=== PATIENT | female | born 1955 | race Caucasian/White ===

== ENCOUNTER 2016-12-16 08:01 | Emergency (ER) | payer BC ==
[2016-05-01 11:01] VITALS: BMI 29.9
[~2016-12-16 08:01] MED LIST: AMOXICILLIN875 MG PO; BENTYL10 MG PO; CALTRATE 600 M600 M1 PO; CITRACAL + D E1 EACH PO; CLARITIN 10 MG10 MG PO; CROLOM 4 % OPTH10 ML EACH EYE; CYCLOBENZAPRINE10 MG PO; DOXYCYCLINE HY100 M2 PO; GLUCOPHAGE500 MG PO; GLUCOSAMINE & C1 CAP PO; HYDROCODONE-APA1 TAB PO; KLONOPIN0.5 MG PO; LANTUS INSULIN10 ML SC; LANTUS SOL100 UNIT/1 SC; LANTUS SOL100 UNIT/1 SQ; METAMUCIL PO; MUCINEX600 MG PO; MULTIPLE VITAMI1 TA1 PO; NAPROSYN500 MG PO; NORVASC10 MG PO; PHENERGAN DM SYR5 ML PO; POTASSIUM99 M1 PO; PROBIOTIC1 EAC1 PO; PROVENTIL/2.5 MG/3 M INH; SALINE NASAL SP45 ML NS; SINGULAIR10 MG PO; SLOW-MAG 64 MG64 MG PO; TORADOL10 MG PO; VENTOLIN HFA18 GM INH; VITAMIN B COMPL1 TAB PO; VITAMIN C WITH500 M1 PO; ZINC30 MG PO; ZYRTEC10 MG PO
[2016-12-16 09:21] LABS: BASOPHILS 0.2 % (0.0-2.0); HEMATOCRIT 39.5 % (36.0-48.0); HEMOGLOBIN 13.6 g/dL (12-16); IMMATURE GRANULOCYTES 0.3 % (0-5); LYMPHOCYTES 15.6 % (15-50); MCH 28.3 pg (26.0-34.0); MCHC 34.4 g/dL (31.0-37.0); MCV 82.3 fL (80.0-100.0); MEAN PLATELET VOLUME 10.4 fL (7.4-10.4); MONOCYTES 5.6 % (2-11); NEUTROPHILS 77.3 % (40-80); PLATELET COUNT 267 10x3/uL (130-400); RDW 12.8 % (11.5-14.5)
[2016-12-16 09:40] LABS: APPEARANCE HAZY (CLEAR); BACTERIA MODERATE /hpf (NONE SEEN); BILIRUBIN NEGATIVE (NEGATIVE); CALCIUM OXALATE CRYSTALS >50 /hpf (NONE SEEN); COLOR DK YELLOW (YELLOW); EPITHELIAL CELLS 0-5 /hpf (0-5); GLUCOSE NEGATIVE (NEGATIVE); KETONE NEGATIVE (NEGATIVE); LEUKOCYTE ESTERASE TRACE (NEGATIVE); MUCUS <1+ /lpf (NONE SEEN); NITRITE NEGATIVE (NEGATIVE); PROTEIN TRACE mg/dL (NEGATIVE); RED CELLS - URINE 0-5 /hpf (0-5)
[2016-12-16 09:42] LABS: ANION GAP 13.7 mmol/L (8-16); CALCIUM 10.4 mg/dL (8.5-10.1); CARBON DIOXIDE 28.1 mmol/L (21.0-32.0); CREATININE - SERUM 1.2 mg/dL (0.6-1.3); POTASSIUM - SERUM 3.8 mmol/L (3.5-5.1)
== END 2016-12-16 15:00 | disposition home or self-care (01) ==
LOC: D.ER 08:01
PROVIDERS: Emergency Medicine
DX: S30.1XXA Contusion of abdominal wall, initial encounter (principal); V89.2XXA Person injured in unspecified motor-vehicle accident, traffic, initial encounter; Y93.89 Activity, other specified; Y92.410 Unspecified street and highway as the place of occurrence of the external cause; I10 Essential (primary) hypertension; E11.9 Type 2 diabetes mellitus without complications; Z79.4 Long term (current) use of insulin

== ENCOUNTER 2017-01-18 05:16 | Day surgery (SDC) | payer BC ==
[2017-01-17 13:54] LABS: HEMATOCRIT 39.1 % (36.0-48.0); HEMOGLOBIN 13.5 g/dL (12-16); MCH 28.4 pg (26.0-34.0); MCHC 34.5 g/dL (31.0-37.0); MCV 82.3 fL (80.0-100.0); MEAN PLATELET VOLUME 11.2 fL (7.4-10.4); RBC 4.75 10x6/uL (4.00-5.40); WBC 9.1 10x3/uL (4.8-10.8)
[2017-01-17 14:17] LABS: ANION GAP 14.4 mmol/L (8-16); CALCIUM 9.5 mg/dL (8.5-10.1); CARBON DIOXIDE 27.6 mmol/L (21.0-32.0); CREATININE - SERUM 1.2 mg/dL (0.6-1.3)
[~2017-01-18] VITALS: Ht 154.9 cm; Wt 70.3 kg
[2017-01-18 05:25] VITALS: BP 123/83; Ht 154.9 cm; Wt 70.3 kg
[2017-01-18] MEDS ORDERED: NORCO 7.5/325 T1 TA1 PO (07:28)
--- NOTE | 2017-01-18 07:41 | NUR ---
0735-RECEIVED PT FROM OR SLEEPY. WILL RESPOND TO SPEECH. RIGHT HAND BANDAGE CDI, DENIES ANY PAIN AT THIS TIME. IV IN LEFT HAND THAT IS INFUSING VANC WITHOUT ANY DIFFICULTIES WATER AT BEDSIDE WILL CONTINUE TO MONITOR
--- NOTE | 2017-01-18 11:25 | NUR ---
0830 IV DC LEO CATHER TIP INTACT WAITING ON RIDE
--- NOTE | 2017-01-29 12:19 | OP ---
PATIENT NAME: JUNAID BURNS MEDICAL RECORD: [id number] :59 LOCATION:D.[facility] ADMISSION DATE: SURGEON: SYL HARTLEY MD DATE OF OPERATION: 01/18/2017 PREOPERATIVE DIAGNOSIS: Right index finger trigger finger. POSTOPERATIVE DIAGNOSIS: Right index finger trigger finger. PROCEDURE PERFORMED: Right index finger trigger release. SURGEON: Harjeet Hartley MD. ANESTHESIA: TIVA with local. CONDITION: She tolerated the procedure well, was transferred to the recovery room in stable condition at termination of procedure. INDICATIONS: This is a pleasant 61-year-old female who has felt like she has a cyst or a bump on her index finger, around the miguel angel. This has been palpable. We discussed options with this, elected to go ahead and look for a cyst versus trigger. We discussed risks, benefits and alternatives. She understood and wished to proceed. OPERATIVE REPORT: The patient was taken to the operating room and placed in supine position. TIVA anesthesia was obtained. She did have local infiltration of the finger. I then made a Z-plasty type incision over the A1 miguel angel. She did have a little collection of Kenalog that was likely what was palpable. I did go ahead and release her A1 miguel angel. The tendon was gliding well. I did not feel any other cyst in the area. I therefore copiously irrigated, closed with 3-0 Prolene suture, placed in a soft dressing and a splint. She was awakened and transferred to the recovery room in stable condition, having tolerated the procedure well. TRANSINT:[id number] Voice Confirmation ID: [id number] DOCUMENT ID: [id number] SYL HARTLEY MD at 1219 CC: [id number] DICTATION DATE: 01/18/17 0800 LIQUOR ESTABLISHMENT MANAGER: 01/18/17 1706 [facility] 01/18/17 [place] [id number]
== END 2017-01-18 10:00 | disposition home or self-care (01) ==
LOC: D.OPS 05:16 → D.PAN 07:00 → D.OPS 07:00 → D.PAN 01-22 07:00 → D.OPS 01-22 07:00
PROVIDERS: Anesthesiology
DX: M65.321 Trigger finger, right index finger (principal)

== ENCOUNTER 2017-05-14 09:10 | Outpatient (CLI) | payer BC ==
[2017-01-18 05:25] VITALS: BMI 29.3
[~2017-05-14 09:10] MED LIST changes: +NORCO 7.5/325 T1 TA1 PO
== END 2017-05-14 09:22 ==
LOC: D.MAMMO 09:10
DX: Z12.31 Encounter for screening mammogram for malignant neoplasm of breast (principal)

== ENCOUNTER 2017-05-23 16:50 | Outpatient (CLI) | payer BC ==
[2017-01-18 05:25] VITALS: BMI 29.3
== END 2017-05-23 17:32 ==
LOC: D.MAMMO 16:50
DX: R92.8 Other abnormal and inconclusive findings on diagnostic imaging of breast (principal)

== ENCOUNTER 2017-08-15 08:00 | Outpatient (CLI) | payer BC ==
[2017-01-18 05:25] VITALS: BMI 29.3
== END 2017-08-15 23:59 | disposition home or self-care (01) ==
LOC: D.MRI 08:00
DX: M79.644 Pain in right finger(s) (principal)

== ENCOUNTER → 2018-02-05 13:32 | Outpatient (CLI) | payer BC ==
[2017-01-18 05:25] VITALS: BMI 29.3
[~2018-02-05 13:32] MED LIST changes: +FENOFIBRATE134 MG PO; +OMEPRAZOLE20 M1 PO; +RELAFEN500 MG PO; +SALAGEN5 MG PO; +SOLIQUA; +ZOCOR20 MG PO
== END | disposition home or self-care (01) ==
LOC: D.CT 13:30
DX: R10.9 Unspecified abdominal pain (principal)

== ENCOUNTER 2018-02-13 05:55 | Day surgery (SDC) | payer BC ==
[2018-02-12 18:11] LABS: HEMATOCRIT 39.5 % (36.0-48.0); MCHC 35.4 g/dL (31.0-37.0); MCV 81.8 fL (80.0-100.0); MEAN PLATELET VOLUME 10.7 fL (7.4-10.4); RBC 4.83 10x6/uL (4.00-5.40); RDW 13.3 % (11.5-14.5); WBC 15.7 10x3/uL (4.8-10.8)
[2018-02-12 18:31] LABS: ANION GAP 15.9 mmol/L (8-16); CALCIUM 9.5 mg/dL (8.5-10.1); CARBON DIOXIDE 28.7 mmol/L (21.0-32.0); CREATININE - SERUM 0.9 mg/dL (0.6-1.3); POTASSIUM - SERUM 3.6 mmol/L (3.5-5.1)
[~2018-02-13] VITALS: Ht 157.5 cm; Wt 68.0 kg
--- NOTE | ~2018-02-13 | OP ---
PATIENT NAME: JUNAID BURNS MEDICAL RECORD: [id number] :59 LOCATION:[facility] ADMISSION DATE: SURGEON: LUCY MAHAJAN, JOEL JOVEL DATE OF OPERATION: 02/13/2018 PREOPERATIVE DIAGNOSES: 1. Recurrent trigger finger with flexor tenosynovitis of the right hand, index finger. 2. Dupuytren's contracture, right hand index finger. 3. Subcutaneous cyst right hand index finger. POSTOPERATIVE DIAGNOSES: 1. Recurrent trigger finger with flexor tenosynovitis of the right hand, index finger. 2. Dupuytren's contracture, right hand index finger. 3. Subcutaneous cyst right hand index finger. PROCEDURE: 1. Debridement of the extensor tendon sheath. 2. A1 miguel angel release. 3. Excision of Dupuytren's contracture. 4. Excision of subcutaneous cyst on the palmar aspect of the right hand. SURGEON: Joel Ayala MD ANESTHESIA: General. INTRAOPERATIVE COMPLICATIONS: The patient had what appeared to be a previous operation with substantial scarring of the A1 miguel angel. After the A1 miguel angel was released only the single slip of the flexor digitorum profundus was found AND a single slip of flexor digitorum superficialis was found. No evidence of the second slip; however, manual manipulation of the flexor digitorum profundus showed good DIP flexion. Manual manipulation of the flexure digitorum superficialis showed good PIP flexion. It is of note that the flexor digitorum profundus was somewhat lax, but obviously still connected without rupture. Substantial synovitis was seen throughout and the tendons had adhered at one point to one another. The A1 miguel angel itself was extremely tight and was released in its entirety. The synovitis of the tendon sheath itself was also debrided. Also a subcutaneous nodule that looked more like a keratosis was removed in its entirety and a single band of early Dupuytren's contracture to the finger was also excised and sent for pathology. OPERATIVE SUMMARY IN DETAIL: After obtaining the appropriate preoperative orthopedic surgery consent as well as anesthetic consultation, evaluation and clearance, the patient was brought to the operating room and placed on the table in supine position. After adequate general laryngeal mask airway was administered, tourniquet was placed about the proximal aspect of the right upper extremity. Right upper extremity was then prepped and draped in routine sterile fashion. The arm was elevated, exsanguinated and tourniquet was inflated to 350 mmHg. Volar zigzag incision was made from the MCP joint back into the palmar aspect incorporating the cyst. As the incision was made, the cyst was excised subcutaneously and further dissection then showed the small, but very present Dupuytren's band. The cyst was excised, the Dupuytren's band was excised, and the entire tendon sheath was exposed. There was a mild amount of thenar eminence herniation. The entire tendon sheath was exposed and inspection was OPERATIVE REPORT [id number] JUNAID BURNS carried out and the findings as noted above were seen. The A1 miguel angel was released in its entirety and the adhesions between the single FDS and the single FDP tendons were taken down for independent excursion. Having completed this, the wound was copiously irrigated and closed with 4-0 Prolene. Sterile dressings were applied. The patient was awakened and taken to recovery in stable condition. Please note, prior to final closure, the area was locally infiltrated with 0.25% Marcaine plain. Again, sterile dressings were applied. Tourniquet was deflated. The patient was awakened and taken to the recovery room in stable condition. All final needle and sponge counts were correct. TRANSINT:[id number] Voice Confirmation ID: [id number] DOCUMENT ID: [id number] LUCY MAHAJAN, JOEL JOVEL at 1601 CC: [id number] DICTATION DATE: 02/13/18 0850 PHARMACY DATA ANALYST: 02/13/18 1110 [facility] 02/13/18 [facility] [address] [place] [address]
[~2018-02-13 05:55] MED LIST changes: -FENOFIBRATE134 MG PO; -OMEPRAZOLE20 M1 PO; -RELAFEN500 MG PO; -SALAGEN5 MG PO; -SOLIQUA; -ZOCOR20 MG PO
[2018-02-13] MEDS ORDERED: SOLIQUA (06:40)
[2018-02-13] MEDS ORDERED: ZOCOR20 MG PO (06:40)
[2018-02-13] MEDS ORDERED: FENOFIBRATE134 MG PO (06:41)
[2018-02-13] MEDS ORDERED: OMEPRAZOLE20 M1 PO (06:41)
[2018-02-13] MEDS ORDERED: RELAFEN500 MG PO (06:41)
[2018-02-13] MEDS ORDERED: SALAGEN5 MG PO (06:42)
[2018-02-13 06:44] VITALS: BP 132/77; Ht 157.5 cm; Wt 68.0 kg
[2018-02-13] MEDS ORDERED: HYDROCODONE-APA1 TAB PO (08:45)
== END 2018-02-13 11:30 | disposition home or self-care (01) ==
LOC: D.OPS 05:55 → D.PAN 07:30 → D.OPS 07:30
PROVIDERS: Orthopaedic Surgery
DX: M65.321 Trigger finger, right index finger (principal); M65.841 Other synovitis and tenosynovitis, right hand; M72.0 Palmar fascial fibromatosis [Dupuytren]; L72.3 Sebaceous cyst; Z01.812 Encounter for preprocedural laboratory examination

== ENCOUNTER 2018-03-06 10:02 | Day surgery (SDC) | payer BC ==
[~2018-03-06] VITALS: Ht 157.5 cm; Wt 68.2 kg
--- NOTE | ~2018-03-06 | OP ---
PATIENT NAME: JUNAID SALAZAR MEDICAL RECORD: [id number] :59 LOCATION:D[facility] ADMISSION DATE: SURGEON: ALBERTINA JUNIOR MD DATE OF OPERATION: 03/06/2018 PROCEDURE: Colonoscopy with biopsy and polypectomy. REFERRING PHYSICIAN: Med Olguin MD INDICATIONS: Ms. Salazar is a delightful 62-year-old woman with a history of colon polyps and diverticulosis coli. She has history of chronic left-sided abdominal pain. She had a CT of the abdomen and pelvis with contrast on 02/05/2018 with finding showing slightly increased number and prominence of subcentimeter mesenteric nodes in the left abdomen (possible mesenteric adenitis), stable hepatomegaly and hepatic steatosis. She was treated with prednisone, but her abdominal pain has persisted. Her last colonoscopy was 01/12/2015 that showed a few diverticula in the transverse, descending, and sigmoid colon and a small tubular adenomatous sigmoid polyp. She presents for outpatient colonoscopy secondary to history of colon polyps and secondary as well as to abdominal pain. PREMEDICATIONS: Propofol 400 mg. INSTRUMENT: Olympus video colonoscope. PROCEDURE AND FINDINGS: After receiving informed consent, Ms. Salazar was placed in left lateral decubitus position, sedated as per anesthesia. After achieving adequate level of sedation, digital rectal exam from it showed no external hemorrhoidal tags, fissures, or fistulas, normal sphincter tone, no palpable rectal masses. Colonoscope was introduced per rectally and advanced to the cecum without difficulty. The cecum, IC valve, and appendiceal orifice were identified and appeared normal. As the colonoscope was withdrawn, careful inspection was made of the pineda of the colon. Overall mucosa had normal vascular and fold pattern. In the transverse colon were 3 polyps measuring 0.3-0.5 cm in size, sessile, removed with hot biopsy forcep technique. In the sigmoid colon were 2 small polyps measuring 0.3 cm in size, removed with hot biopsy forcep technique. There was one small patch of erythema in the sigmoid colon and sigmoid biopsies were obtained to rule out microscopic colitis. A few diverticula were seen in the sigmoid, descending, and transverse colon. They were small mouthed with no inflammatory changes. Retroflexion in rectum showed no internal hemorrhoids. A good prep was present. Ms. Salazar tolerated procedure well, no immediate complications. ASSESSMENT: 1. Mild pandiverticulosis coli without diverticulitis. 2. Three transverse colon polyps, status post polypectomy. 3. Two sigmoid polyps, status post polypectomy. 4. Left abdominal pain, status post sigmoid biopsy. RECOMMENDATIONS: 1. Follow up histopathology. 2. Avoid aspirin, nonsteroidal anti-inflammatory drugs, and BRADFORD-2 inhibitors for 14 days post polypectomy. 3. Daily Metamucil. 4. Avoid nuts, popcorn, and foods with small seeds. OPERATIVE REPORT [id number] JUNAID SALAZAR 5. Plan repeat CT of the abdomen and pelvis in May 2018. TRANSINT:[id number] Voice Confirmation ID: [id number] DOCUMENT ID: [id number] ALBERTINA JUNIOR MD at 1123 CC: MED OLGUIN [id number] DICTATION DATE: 03/06/18 1311 DONKEY ENGINE FIRER/FIREMAN: 03/06/18 1344 [facility] 03/06/[address] [address]
[~2018-03-06 10:02] MED LIST changes: +FENOFIBRATE134 MG PO; +OMEPRAZOLE20 M1 PO; +RELAFEN500 MG PO; +SALAGEN5 MG PO; +SOLIQUA; +ZOCOR20 MG PO
[2018-03-06 10:44] VITALS: BP 109/80; Ht 157.5 cm; Wt 68.2 kg
[2018-03-06 10:49] LABS: BASOPHILS 0.3 % (0-2); EOSINOPHILS 2.2 % (0-7); HEMATOCRIT 39.9 % (36.0-48.0); HEMOGLOBIN 14.3 g/dL (12-16); IMMATURE GRANULOCYTES 0.2 % (0-5); LYMPHOCYTES 34.2 % (15-50); MCH 29.5 pg (26.0-34.0); MCHC 35.8 g/dL (31.0-37.0); MCV 82.3 fL (80.0-100.0); MONOCYTES 8.6 % (2-11); NEUTROPHILS 54.5 % (40-80); PLATELET COUNT 270 10x3/uL (130-400); RBC 4.85 10x6/uL (4.00-5.40); RDW 13.1 % (11.5-14.5); WBC 5.9 10x3/uL (4.8-10.8)
[2018-03-06 11:05] LABS: ALBUMIN 3.8 g/dL (3.4-5.0); ANION GAP 14.7 mmol/L (8-16); BILIRUBIN - TOTAL 0.4 mg/dL (0.2-1.3); CALCIUM 8.6 mg/dL (8.5-10.1); CARBON DIOXIDE 27.7 mmol/L (21.0-32.0); CREATININE - SERUM 0.9 mg/dL (0.6-1.3); POTASSIUM - SERUM 3.4 mmol/L (3.5-5.1); PROTEIN - SERUM 7.6 g/dL (6.4-8.2)
== END 2018-03-06 15:00 | disposition home or self-care (01) ==
LOC: D.OPS 10:02
PROVIDERS: Internal Medicine Gastroenterology
DX: K57.30 Diverticulosis of large intestine without perforation or abscess without bleeding (principal); D12.5 Benign neoplasm of sigmoid colon; D12.3 Benign neoplasm of transverse colon; K63.5 Polyp of colon; Z01.812 Encounter for preprocedural laboratory examination

== ENCOUNTER → 2018-05-01 08:02 | Outpatient (CLI) | payer BC ==
[2018-03-06 10:44] VITALS: BMI 27.5
== END | disposition home or self-care (01) ==
LOC: D.MRI 08:02
DX: M79.641 Pain in right hand (principal)

== ENCOUNTER → 2018-06-02 16:29 | Outpatient (CLI) | payer BC ==
[2018-03-06 10:44] VITALS: BMI 27.5
[2018-06-04 08:17] LABS: HEP B CORE AB TOTAL Negative (Negative); HEPATITIS C ANTIBODY <0.1 (0.0-0.9)
== END | disposition home or self-care (01) ==
LOC: D.LAB 16:29
PROVIDERS: Internal Medicine Rheumatology
DX: M35.00 Sjogren syndrome, unspecified (principal)

== ENCOUNTER → 2018-07-08 19:49 | Outpatient (CLI) | payer BC ==
[2018-03-06 10:44] VITALS: BMI 27.5
== END | disposition home or self-care (01) ==
LOC: D.MAMMO 06-26 11:30
DX: Z12.31 Encounter for screening mammogram for malignant neoplasm of breast (principal)

== ENCOUNTER → 2018-07-25 12:51 | Outpatient (CLI) | payer OTHER ==
[2018-03-06 10:44] VITALS: BMI 27.5
== END | disposition home or self-care (01) ==
LOC: D.RAD 12:51 → D.MAMMO 13:00
DX: Z02.71 Encounter for disability determination (principal)

== ENCOUNTER → 2018-07-25 13:04 | Outpatient (CLI) | payer BC ==
[2018-03-06 10:44] VITALS: BMI 27.5
[2018-07-25 14:37] LABS: ALBUMIN 4.2 g/dL (3.4-5.0); CREATININE - SERUM 0.9 mg/dL (0.6-1.3)
[2018-07-25 16:25] LABS: BASOPHILS 0.4 % (0-2); EOSINOPHILS 3.7 % (0-7); HEMOGLOBIN 14.4 g/dL (12-16); IMMATURE GRANULOCYTES 0.4 % (0-5); LYMPHOCYTES 25.1 % (15-50); MCH 28.7 pg (26.0-34.0); MCHC 35.1 g/dL (31.0-37.0); MCV 81.7 fL (80.0-100.0); MEAN PLATELET VOLUME 10.7 fL (7.4-10.4); MONOCYTES 4.8 % (2-11); NEUTROPHILS 65.6 % (40-80); PLATELET COUNT 311 10x3/uL (130-400); RBC 5.02 10x6/uL (4.00-5.40); RDW 13.9 % (11.5-14.5); WBC 7.5 10x3/uL (4.8-10.8)
[2018-07-25 16:33] LABS: ERYTHROCYTE SEDIMENTATION RATE 20 mm/hr (0-30)
== END | disposition home or self-care (01) ==
LOC: D.LAB 13:04
PROVIDERS: Internal Medicine Rheumatology
DX: M35.00 Sjogren syndrome, unspecified (principal)

== ENCOUNTER → 2018-09-19 10:13 | Outpatient (CLI) | payer BC ==
[2018-03-06 10:44] VITALS: BMI 27.5
[~2018-09-19 10:13] MED LIST changes: +AMIODARONE HCL200 MG PO; +ASPIRIN EC81 M1 PO; +COLACE100 MG PO; +COZAAR50 MG PO; +GALZIN50 MG PO; +GINGER500 MG PO; +GLUCOSAMINE HC500 MG PO; +K-DUR20 MEQ PO; +L-LYSINE500 M1 PO; +LOPRESSOR25 MG PO; +MELATONIN 3 MG1 TAB PO; +METHOTREXATE2.5 MG PO; +NEURONTIN 300300 MG PO; +NOVOLIN 70/30 110 ML SC; +PERCOCET 5-3251 TAB PO; +ROBAXIN500 MG PO; -SOLIQUA; +SOLIQUA 100 UNIT3 ML SC; +TESSALON PERLE100 MG PO; +TRICOR145 MG PO
== END | disposition home or self-care (01) ==
LOC: D.CT 10:13
DX: I88.0 Nonspecific mesenteric lymphadenitis (principal)

== ENCOUNTER 2018-09-29 12:24 | Inpatient (IN) | payer BC, MEDICAID ==
[~2018-09-29] VITALS: Ht 157.5 cm; Wt 76.0 kg
--- NOTE | ~2018-09-29 | HEMODYNAMI ---
PATIENT:JUNAID BURNS MEDICAL RECORD: [id number] : 59 LOCATION:D[facility] ADMISSION DATE: 09/29/18 Generatedon:09/29/201816:20 Patient name: JUNAID BURNS Patient #: [id number] SSN: : 1955 Date of study: 09/29/2018 Page: Of Hemodynamic Procedure Report Patient Data Patient Demographics Procedure consent was obtained First Name: JUNAID Gender: Female Last Name: KATY : 1955 [facility] Initial: L Age: 62 year(s) Patient #: [id number] Race: Unknown Additional ID: [id number] Contact details [address]: [address] [place] [address] [place] State: [place] City: [place] Zip code: [address] Past Medical History Allergies Allergen Reaction Date Comments Reported Other allergy 09/29/2018 Cephlexin Admission Admission Data Admission Date: 09/29/2018 Admission Time: 12:24 Procedure Procedure Types Cath Procedure Diagnostic Procedure LHC LHC w/Coronaries Procedure Description Procedure Date Procedure Date: 09/29/2018 Procedure Start Time: 16:01 Procedure End Time: 16:16 Procedure Staff Name Function Blu Silva MD Performing Physician Romi Costa RT Monitor Anitha Sanches RT Scrub Haley Larkin RN Nurse Procedure Data Cath Procedure Fluoroscopy Diagnostic fluoroscopy Total fluoroscopy Time: 1.5 time: 1.5 min min Diagnostic fluoroscopy Total fluoroscopy dose: 244 dose: 244 mGy mGy Contrast Material Contrast Material Type Amount (ml) Isovue 300 78 Entry Location Entry Primary Successful Side Size Upsize Upsize Entry Closure Succes sful Closure Location (Fr) 1 (Fr) 2 (Fr) Remarks Device Remarks Femoral Right 5 Fr Exoseal artery Estimated blood loss: 10 ml Diagnostic catheters Device Type Used For End Catheter Placement MULTIPACK JL 4.0 5Fr Procedure catheter MULTIPACK 3DRC 5Fr Procedure catheter MULTIPACK Pigtail 5 Fr Procedure catheter Procedure Complications No complications Procedure Medications Medication Administration Route Dosage Oxygen etCO2 Nasal cannula 2 l/min Lidocaine 2% added to field 20 Heparin Flush Bag added to field 2 bags (1000units/500ml NS) 0.9% NaCl I.V. 100 ml/hr Versed I.V. 2 mg Fentanyl I.V. 100 mcg Versed I.V. 2 mg Fentanyl I.V. 100 mcg Versed I.V. 1 mg Fentanyl I.V. 50 mcg Hemodynamics Rest Heart Rate: 96 (bpm) Pressure Samples Time Site Value (mmHg) Purpose Heart Use Rate(bpm) 16:09 LV 148/-7,20 Snapshot 106 16:10 AO 142/79(106) Pullback 112 Gradients Valve Time Site Site 2 Mean SEP/DFP Peak To Heart Use 1 (mmHg) (sec/min) Peak Rate (mmHg) (bpm) Aortic 16:10 LV AO 14 33 112 142/79(106) Calculations Valve P-P Mean Valve Index Valve Source Name Gradient Area Flow (cm2) Aortic 14 14 Snapshots Pre Cath Intra NCS Post Cath Vital Signs Time Heart Resp SPO2 etCO2 NIBP (mmHg) Rhythm Pain Sedation Rate (ipm) (%) (mmHg) Status Level (bpm) 15:19:56 96 22 96 0 150/98(122) NSR 0 (11) 10(A) , No pain 15:24:12 97 15 95 2.2 151/96(117) NSR 0 (11) 10(A) , No pain 15:28:26 101 17 92 6.7 142/94(118) NSR 0 (11) 10(A) , No pain 15:32:38 94 14 94 15 132/81(115) NSR 0 (11) 10(A) , No pain 15:36:51 96 22 96 13.5 135/80(110) NSR 0 (11) 10(A) , No pain 15:41:03 101 23 97 9.7 143/95(117) NSR 0 (11) 10(A) , No pain 15:45:17 102 10 96 4.5 143/96(121) NSR 0 (11) 10(A) , No pain 15:49:33 103 10 96 1.5 139/96(117) NSR 0 (11) 10(A) , No pain 15:53:47 101 16 95 1.5 146/96(119) NSR 0 (11) 10(A) , No pain 15:57:58 96 16 95 13 132/86(107) NSR 0 (11) 10(A) , No pain 16:02:13 99 18 94 2.2 129/81(103) NSR 0 (11) 9(A) , No pain 16:06:25 106 16 96 1.5 143/87(107) NSR 0 (11) 9(A) , No pain 16:10:43 105 16 93 1.5 133/82(102) NSR 0 (11) 9(A) , No pain 16:14:51 105 20 93 1.5 124/80(96) NSR 0 (11) 10(A) , No pain Medications Time Medication Route Dose Verified Delivered Reason Notes Eff ectiveness by by 15:27:32 Oxygen etCO2 2 Blu Buffie used for Nasal l/min Ricardo Larkin RN procedure cannula 15:27:40 Lidocaine 2% added 20ml Blu Blu for local to vial Ricardo Silva MD anesthetic field 15:27:47 Heparin Flush added 2 Blu Blu used for Bag to bags Ricardo Silva MD procedure (1000units/500ml field NS) 15:27:55 0.9% NaCl I.V. 100 Blu Buffie Per ml/hr Ricardo Larkin RN physician 15:57:55 Versed I.V. 2 mg Blu Buffie for Ricardo Larkin RN sedation 15:58:01 Fentanyl I.V. 100 Blu Buffie for kathy Larkin RN sedation 16:02:01 Versed I.V. 2 mg Blu Buffie for Ricardo Larkin RN sedation 16:02:04 Fentanyl I.V. 100 Blu Buffie for kathy Larkin RN sedation 16:10:34 Versed I.V. 1 mg Blu Buffie for Ricardo Larkin RN sedation 16:10:38 Fentanyl I.V. 50 Blu Buffie for mcg Ricardo Larkin RN sedation Procedure Log Time Note 15:06:36 Haley Larkin RN sent for patient. Start room use. 15:06:37 Time tracking: Regular hours (M-F 7:00 - 5:00) 15:06:42 Plan of Care:Hemodynamics will remain stable., Cardiac rhythm will remain stable., Comfort level will be maintained., Respiratory function will remain adequate., Patient/ family verbilizes understanding of procedure., Procedure tolerated without complication., Recovers from procedure without complications.. 15:18:36 Patient received from Pre/Post Procedure Room to CCL 3 Alert and oriented. Tansferred to table in Supine position. 15:18:37 Warm blankets applied, and darian hugger turned on for patient comfort. 15:18:38 Correct patient and procedure confirmed by team. 15:18:39 Signed procedure consent form obtained from patient. 15:18:40 ECG and BP/O2 sat monitors applied to patient. 15:18:41 Vital chart was started 15:18:42 Baseline sample Acquired. 15:21:07 Rhythm: sinus rhythm 15:21:11 Full Disclosure recording started 15::38 H&P Date Dictated: 09/25/2018 Within 30 days and on chart., H&P Addendum completed by physician on day of procedure. (MUST COMPLETE FOR ALL OUTPATIENTS). 15:21:39 Pre-procedure instructions explained to patient. 15:21:41 Family in waiting room. 15:21:43 Patient NPO since Midnight. 15:22:02 Patient allergic to Other allergyCephlexin 15:22:05 Is the patient allergic to Iodine/contrast media? No. 15:22:08 Was the patient premedicated? Yes 15:22:46 Is patient on blood thinner?No 15:22:49 Patient diabetic? Yes. 15:22:50 If diabetic: On Metformin? Yes 15:22:54 If on Metformin: Last Dose? 09/25/2018 15:23:00 Snore? Yes 15:24:45 Sleep apnea? No 15:24:54 Airway obstruction? Yes asthma 15:25:02 Patient pain scale 0/10 ?. 15:25:15 IV patent on arrival in left forearm with 0.9% NaCl at KVO. 15:25:19 Lab results completed and on chart. 15:25:24 Right groin area was prepped with chlora-prep and draped in sterile fashion 15:25:25 Alarms reviewed by R. N. 15:25:26 Sharps counted by scrub and verified by R.N. 15:25:35 Physician paged 15:27:32 Oxygen 2 l/min etCO2 Nasal cannula was administered by Haley Larkin RN; used for procedure; 15:27:40 Lidocaine 2% 20ml vial added to field was administered by Blu Silva MD; for local anesthetic; 15:27:47 Heparin Flush Bag (1000units/500ml NS) 2 bags added to field was administered by Blu Silva MD; used for procedure; 15:27:55 0.9% NaCl 100 ml/hr I.V. was administered by Haley Larkin RN; Per physician; 15:54:04 Zero performed for pressure channel P1 15:57:22 Physician arrived 15:57:23 --------ALL STOP TIME OUT------ 15:57:24 Final Timeout: patient, procedure, and site verified with staff and physician. All members of the team are in agreement. 15:57:31 Right groin site verified by team. 15:57:35 Physical assessment completed. ASA score P 2 - A patient with mild systemic disease as per Blu Silva MD. 15:57:40 Sedation plan: IV Moderate Sedation Medication:Versed, Fentanyl 15:57:46 Use device set Femoral Dx 15:57:47 ACIST Syringe (00672) opened to sterile field. 15:57:47 Bag Decanter (2002) opened to sterile field. 15:57:48 Medline Cath Pack ([id number]) opened to sterile field. 15:57:48 DIAGNOSTIC WIRE .035 260cm J wire (080485) opened to sterile field. 15:57:50 ACIST Hand Control (79826) opened to sterile field. 15:57:50 ACIST Manifold (16695) opened to sterile field. 15:57:51 DIAGNOSTIC Multipack 5Fr catheter set (KX3765) opened to sterile field. 15:57:52 Tegaderm 4 x 4 (1626W) opened to sterile field. 15:57:53 PERCUTANEOUS ENTRY 19GA needle opened to sterile field. 15:57:55 Versed 2 mg I.V. was administered by Haley Larkin RN; for sedation; 15:57:55 SHEATH Prelude 5Fr 0.035 (UAV-9S-34-035) opened to sterile field. 15:58:01 Fentanyl 100 mcg I.V. was administered by Haley Larkin RN; for sedation; 16:00:09 Procedure started. 16:01:16 Local anesthetic to right femoral artery with Lidocaine 2% by Blu Silva MD.INITIAL ACCESS ONLY 16:01:33 A 5 Fr sheath was inserted into the Right Femoral artery 16:02:01 Versed 2 mg I.V. was administered by Haley Larkin RN; for sedation; 16:02:03 J wire advanced. 16:02:04 Fentanyl 100 mcg I.V. was administered by Haley Larkin RN; for sedation; 16:02:54 A MULTIPACK JL 4.0 5Fr catheter was advanced over the wire and used for Procedure. 16:03:08 LCA angiography performed. 16:07:01 Catheter removed. 16:07:48 A MULTIPACK 3DRC 5Fr catheter was advanced over the wire and used for Procedure. 16:09:10 RCA angiography performed. 16:09:12 Catheter removed. 16:09:22 A MULTIPACK Pigtail 5 Fr catheter was advanced over the wire and used for Procedure. 16:10:29 EF : 50 % 16:10:30 Catheter removed. 16:10:34 Versed 1 mg I.V. was administered by Haley Larkin RN; for sedation; 16:10:38 Fentanyl 50 mcg I.V. was administered by Haley Larkin RN; for sedation; 16:14:30 EXOSEAL 5Fr (EX500) opened to sterile field. 16:14:41 Sheath removed intact; hemostasis achieved with Exoseal to the Right Femoral artery. 16:14:51 Procedure ended.(Physican Out) 16:15:02 Fluoroscopy time 01.50 minutes. 16:15:15 Fluoroscopy dose: 244 mGy 16:15:15 Flurop Dose total: 244 16:15:19 Contrast amount:Isovue 300 78ml. 16:15:21 Sharps counted by scrub and verified by R.N. 16:15:25 Insertion/operative site no bleeding no hematoma. 16:15:29 Post-op/insertion site Right Femoral artery dressed using a 4 x 4 and Tegaderm. 16:15:34 Post right femoral artery:stable 16:15:40 Post-procedure physical assessment completed. ASA score P 2 - A patient with mild systemic disease as per Blu Silva MD. 16:15:46 Post procedure rhythm: unchanged. 16:15:50 Estimated blood loss: 10 ml 16:15:52 Post procedure instruction explained to patient.Patient verbalizes understanding. 16:16:13 Procedure and supply charges have been captured, reviewed, submitted and are correct. 16:16:31 Procedure Complication : No complications 16:16:33 Vital chart was stopped 16:16:34 See physician's report for complete and final results. 16:16:35 Report given to Pre/Post Procedure Room. 16:16:39 Patient transfered to Pre/Post Procedure Room with Stretcher. 16:16:42 Procedure ended. 16:16:42 Full Disclosure recording stopped 16:16:45 End room use (Document Last) Device Usage Item Name Manufacture Quantity Catalog Number Hospital Part Current M inimal Lot# / Charge Number Stock Stock Serial# Code ACIST Syringe Acist 1 61091 [id number] 660777 840732 2 0 (09370) Medical Systems Fareye Bag Decanter Microtek 1 973923 22715 213701 5 () Medical Inc. Medline Cath Medline 1 [id number] 159955 20150 600769 5 Pack ([id number]) DIAGNOSTIC WIRE St Jonah 1 820674 445593 181232 118678 3 0 .035 260cm J wire (061091) ACIST Hand Acist 1 88352 064702 742850 287152 5 Control (31859) Medical Systems Inc ACIST Manifold Acist 1 34914 514917 943323 182355 5 (07955) Medical Systems Inc DIAGNOSTIC Cardinal 1 [id number] 166324 94618 180428 3 0 Multipack 5Fr Health catheter set ([id number]) Tegaderm 4 x 4 3M 1 1626W 162053 926233 944982 5 (1626W) PERCUTANEOUS Cook Medical 1 [id number] 797699 117823 5 ENTRY 19GA needle SHEATH Prelude Merit 1 AYY-7Q-32-035 674229 102743 210382 5 5Fr 0.035 Medical (POT-1D-14-035) MULTIPACK JL Cardinal 1 153325 5 4.0 5Fr Health catheter MULTIPACK 3DRC Cardinal 1 168212 5 5Fr catheter Health MULTIPACK Cardinal 1 591150 5 Pigtail 5 Fr Health catheter EXOSEAL 5Fr Cardinal 1 EX500 679386 037830 968777 1 0 (EX500) Health Signature Audit [place] Stage Time Signature Unsigned Intra-Procedure 09/29/2018 Romi Costa 4:20:40 PM RT(R) Signatures Monitor : Romi Costa Signature : RT Date : Time : [address] [place] [address]
--- NOTE | ~2018-09-29 | MORECARE ---
CASE MANAGEMENT DISCHARGE SUMMARY PATIENT: JUNAID BURNS UNIT: [id number] ADM DATE: 09/29/18 AGE: 62 : [birth year] SEX: F [facility] AUTHOR: CAROLA,DOC PHYSICIAN: REFERRING PHYSICIAN: MEAGAN BRUNER M.D. DATE OF SERVICE: 10/09/18 Discharge Plan Patient Name: JUNAID BURNS Facility: [facility] : 1955 Planned Disposition: Home Anticipated Discharge Date: Discharge Date: 10/09/2018 Expected LOS: Initial Reviewer: [email or web address] Initial Review Date: 10/09/2018 Generated: 10/09/18 6:16 pm Comments DCP- Discharge Planning Updated by [email or web address]: Mary Whyte on 10/09/18 4:[address] Late Entry 10/09/18 @ 1245 Patient Name: JUNAID BURNS Admission Status: Elective Accout number: [id number] Admission Date: 09-29-2018 : 1955 Admission Diagnosis:DYSPNEA, UNSPECIFIED Attending: MEAGAN BRUNER Current LOS: 10 Anticipated DC Date: Planned Disposition: Home Primary Insurance: [employer] [facility] Discharge Planning Comments: CM met with patient at bedside. Patient plans on staying with her daughter for awhile after discharge then will go back to her home. Patient states her daughter will transport her home. Patients insurance termed while in hospital. CM spoke with Harvinder Tanner and it was noted that patients insurance termed on 10/01/18 and Medicaid started on 10/02/18. CM called [facility] and gave Medicaid number. CM gave patient a note with her Medicaid number on it with activation date. CM explained that with Medicaid they cover up to six prescriptions a month. Patient stated that she took approximately 18 scripts. CM advised that she might could get some medications changed to 4 dollar drug list. CM explained that the patient might could go online and get discount card on certain prescriptions. Patient denies any discharge needs at this time. CM will continue to follow and assist as needed with discharge plans. Linking Machine Operator: Mary Whyte Last DP export: 10/09/18 4:01 p Patient Name: JUNAID BURNS Page [id number] at 1716 All edits/amendments must be made on the electronic document DICTATION DATE: 10/09/181715 SURGERY SCHEDULING COORDINATOR: TIFFANY 10/09/181715 RPT#: [id number] DC DATE:10/09/18 STATUS: DIS IN [facility] [address] [place] [address] END OF REPORT
--- NOTE | ~2018-09-29 | MORECARE ---
CASE MANAGEMENT DISCHARGE SUMMARY PATIENT: JUNAID BURNS UNIT: [id number] ADM DATE: 09/29/18 AGE: 62 : 59 SEX: F [facility] AUTHOR: CAROLA,DOC PHYSICIAN: REFERRING PHYSICIAN: MEAGAN BRUNER M.D. DATE OF SERVICE: 10/09/18 Discharge Plan Patient Name: JUNAID BURNS Facility: [facility]:[place] : 1955 Planned Disposition: Home Anticipated Discharge Date: Discharge Date: 10/09/2018 Expected LOS: Initial Reviewer: [email or web address] Initial Review Date: 10/09/2018 Generated: 10/09/18 6:35 pm Comments DCP- Discharge Planning Updated by [id number]: Mary Whyte on 10/09/18 4:[address] Late Entry 10/09/18 @ 1245 Patient Name: JUNAID BURNS Admission Status: Elective Accout number: [id number] Admission Date: 09-29-2018 : 1955 Admission Diagnosis:DYSPNEA, UNSPECIFIED Attending: MEAGAN BRUNER Current LOS: 10 Anticipated DC Date: Planned Disposition: Home Primary Insurance: [employer] [facility] Discharge Planning Comments: CM met with patient at bedside. Patient plans on staying with her daughter for awhile after discharge then will go back to her home. Patient states her daughter will transport her home. Patients insurance termed while in hospital. CM spoke with Harvinder Tanner and it was noted that patients insurance termed on 10/01/18 and Medicaid started on 10/02/18. CM called [facility] and gave Medicaid number. CM gave patient a note with her Medicaid number on it with activation date. CM explained that with Medicaid they cover up to six prescriptions a month. Patient stated that she took approximately 18 scripts. CM advised that she might could get some medications changed to 4 dollar drug list. CM explained that the patient might could go online and get discount card on certain prescriptions. Patient denies any discharge needs at this time. CM will continue to follow and assist as needed with discharge plans. Poultry Cutter: Mary Whyte Last DP export: 10/09/18 4:16 p Patient Name: JUNAID BURNS Page [id number] at 1735 All edits/amendments must be made on the electronic document DICTATION DATE: 10/09/181734 DAT INSTRUCTOR: TIFFANY 10/09/181734 RPT#: [id number] DC DATE:10/09/18 STATUS: DIS IN [facility] [address] [place] [address] END OF REPORT
--- NOTE | ~2018-09-29 | MORECARE ---
CASE MANAGEMENT DISCHARGE SUMMARY PATIENT: JUNAID BURNS UNIT: [id number] ADM DATE: 09/29/18 AGE: 62 : 59 SEX: F ROOM/BED: [facility] AUTHOR: SHERRIE SRIVASTAVA PHYSICIAN: REFERRING PHYSICIAN: MEAGAN BRUNER M.D. DATE OF SERVICE: 10/09/18 Discharge Plan Patient Name: JUNAID BURNS Facility: [facility]:[place] : 1955 Planned Disposition: Home Anticipated Discharge Date: Discharge Date: 10/09/2018 Expected LOS: Initial Reviewer: [email or web address] Initial Review Date: 10/09/2018 Generated: 10/09/18 6:01 pm Patient Name: JUNAID BURNS Page [id number] at 1701 All edits/amendments must be made on the electronic document DICTATION DATE: 10/09/181700 ENTERTAINER OR VARIETY ARTIST: TIFFANY 10/09/181700 RPT#: [id number] DC DATE:10/09/18 STATUS: DIS IN [facility] [address] [place] [address] END OF REPORT
--- NOTE | ~2018-09-29 | OP ---
PATIENT NAME: JUNAID BURNS MEDICAL RECORD: [id number] :59 [facility] ADMISSION DATE:09/29/18 SURGEON: GIAN SAMUEL MD DATE OF OPERATION: 10/01/2018 SURGEON: Gian Samuel MD STEEL FIXER: CHAPARRO Haines MD and GEOVANNY Orozco OPERATION PERFORMED: Coronary artery bypass graft times 3 (left internal mammary to LAD, reverse saphenous vein graft from aorta to diagonal and aorta to right coronary artery). PREOPERATIVE DIAGNOSES: Coronary artery disease with unstable angina. POSTOPERATIVE DIAGNOSES: Coronary artery disease with unstable angina. ANESTHESIA: General endotracheal anesthesia. ESTIMATED BLOOD LOSS: Total cardiopulmonary bypass with Cell Saver retransfusion, but no bank blood transfusions. COMPLICATIONS: None. SPECIMENS: None. CONDITION: Stable. DISPOSITION: CV ICU. OPERATIVE FINDINGS: 1. Thin-walled greater saphenous vein of adequate caliber. 2. Slightly small, but good flow left internal mammary artery. The left anterior descending was deep intra-epicardial with no significant disease. Good Doppler signal after anastomosis and after reversal of heparin. 3. Diagonal vessel was grafted due to concern for lack of backflow in internal mammary into the diagonal, which was a larger vessel than the LAD about a 2.5 mm vessel. 4. Right coronary artery, moderate disease 2.5 mm of posterior descending artery with small and the acute marginal branch that came off to supply the inferior wall was above this anastomosis. OPERATIVE INDICATION: Coronary artery disease. OPERATIVE PROCEDURE IN DETAIL: The patient was brought to the operative suite. General anesthesia obtained. The patient was prepped and draped. Greater saphenous vein was harvested in the right lower extremity utilizing bridging incisions. Side branches were divided, vessel ligated proximally and distally removed. Side branches were tied. Later, the leg was closed in 2 layers. Median sternotomy incision was made. Subcutaneous tissue was divided with electrocautery. The sternum was divided with a saw. Left hemisternum was elevated. Left pleural cavity was entered. Left internal mammary artery and vein were taken down as a pedicle graft. A sternal retractor was placed. Pericardium was opened. Heparin was given. Aorta was cannulated. Dual stage OPERATIVE REPORT [id number] JUNAID BURNS venous cannula was inserted. The internal mammary was clipped distally and made ready for anastomosis. The patient was placed on cardiopulmonary bypass. Sites for distal anastomosis were selected. Cardioplegia needle was inserted from the anterior ascending aorta. Crossclamp was placed. Cardioplegia was given antegrade and this was repeated at 15 to 20-minute intervals during the crossclamp time including down the completed vein grafts. Distal anastomosis was performed in a standard technique. Proximal anastomosis was performed with a single cross-clamp. The aortic root was de-aired by removing the clamp, venting the root, tying the proximal anastomoses, deairing the vein graft and restoring their flow. The patient resumed to a spontaneous rhythm, eventually sinus rhythm, fully rewarmed. Proximal and distal anastomotic sites were without bleeding. The patient was weaned from cardiopulmonary bypass and was stable. The patient was decannulated. The cannula sites were oversewn. Protamine was given. Thorough irrigation was undertaken. Left chest evacuated and irrigated. The internal mammary harvest site was checked for bleeding. Drains were placed in the mediastinum and left pleural cavity. Ventricular pacing wires were placed. Pericardial fat was loosely reapproximated. The sternum was closed with wires. Fascia was closed. Subcutaneous tissue was closed. Skin was closed. Dermabond was placed. The needle and sponge counts were reported as correct and the patient was taken to ICU in stable condition. TRANSINT:[id number] Voice Confirmation ID: [id number] DOCUMENT ID: [id number] GIAN SAMUEL MD at 0745 CC: MEAGAN BRUNER M.D. [id number] DICTATION DATE: 10/01/18 1537 AUTOMATIC SCREWMAKER: 10/01/18 1558 ADM IN [place] [id number] [place] [address]
[~2018-09-29 12:24] MED LIST changes: -AMIODARONE HCL200 MG PO; -ASPIRIN EC81 M1 PO; -COLACE100 MG PO; -COZAAR50 MG PO; -GALZIN50 MG PO; -GINGER500 MG PO; -GLUCOSAMINE HC500 MG PO; -K-DUR20 MEQ PO; -L-LYSINE500 M1 PO; -LOPRESSOR25 MG PO; -MELATONIN 3 MG1 TAB PO; -METHOTREXATE2.5 MG PO; -NEURONTIN 300300 MG PO; -NOVOLIN 70/30 110 ML SC; -PERCOCET 5-3251 TAB PO; -ROBAXIN500 MG PO; -TESSALON PERLE100 MG PO; -TRICOR145 MG PO
[2018-09-29] MEDS ORDERED: NOVOLIN 70/30 110 ML SC (13:20)
[2018-09-29] MEDS ORDERED: ROBAXIN500 MG PO (13:22)
[2018-09-29] MEDS ORDERED: RELAFEN500 MG PO (13:24)
[2018-09-29] MEDS ORDERED: NEURONTIN 300300 MG PO (13:24)
[2018-09-29] MEDS ORDERED: METHOTREXATE2.5 MG PO (13:26)
[2018-09-29] MEDS ORDERED: MELATONIN 3 MG1 TAB PO (13:27)
[2018-09-29] MEDS ORDERED: TESSALON PERLE100 MG PO (13:27)
[2018-09-29] MEDS ORDERED: COZAAR50 MG PO (13:27)
[2018-09-29] MEDS ORDERED: GALZIN50 MG PO (13:30)
[2018-09-29] MEDS ORDERED: GLUCOSAMINE HC500 MG PO (13:30)
[2018-09-29] MEDS ORDERED: GINGER500 MG PO (13:31)
[2018-09-29] MEDS ORDERED: L-LYSINE500 M1 PO (13:31)
[2018-09-29 13:39] VITALS: BP 163/86; BMI 29.3
[2018-09-29 13:39] LABS: BASOPHILS 0.2 % (0-2); EOSINOPHILS 1.8 % (0-7); HEMATOCRIT 37.9 % (36.0-48.0); HEMOGLOBIN 13.6 g/dL (12-16); IMMATURE GRANULOCYTES 0.2 % (0-5); LYMPHOCYTES 18.7 % (15-50); MCHC 35.9 g/dL (31.0-37.0); MCV 83.5 fL (80.0-100.0); MEAN PLATELET VOLUME 10.7 fL (7.4-10.4); MONOCYTES 5.8 % (2-11); NEUTROPHILS 73.3 % (40-80); PLATELET COUNT 251 10x3/uL (130-400); RBC 4.54 10x6/uL (4.00-5.40); RDW 13.5 % (11.5-14.5); WBC 10.3 10x3/uL (4.8-10.8)
[2018-09-29 13:46] LABS: CALC OSMOLALITY 290 mosm/kg (275-300); CALCIUM 9.4 mg/dL (8.5-10.1); CARBON DIOXIDE 29.2 mmol/L (21.0-32.0); CHLORIDE - SERUM 103 mmol/L (98-107); CREATININE - SERUM 0.8 mg/dL (0.6-1.3); POTASSIUM - SERUM 3.8 mmol/L (3.5-5.1); SODIUM 140 mmol/L (136-145); UREA NITROGEN 15 mg/dL (7-18); eGFR NON AFRICAN AMERICAN 77 mL/min (90-120)
[2018-09-29 13:47] LABS: GLUCOSE 302 mg/dL (74-106)
[2018-09-29 20:27] VITALS: BP 141/78
[2018-09-30] VITALS: BP 136/80
[2018-09-30 02:59] VITALS: BP 163/86; BMI 29.3
[2018-09-30 05:57] VITALS: BP 126/75
[2018-09-30 11:16] LABS: BASOPHILS 0.4 % (0-2); EOSINOPHILS 2.6 % (0-7); HEMOGLOBIN 12.9 g/dL (12-16); IMMATURE GRANULOCYTES 0.3 % (0-5); LYMPHOCYTES 27.2 % (15-50); MCH 29.3 pg (26.0-34.0); MCHC 34.9 g/dL (31.0-37.0); MCV 84.1 fL (80.0-100.0); MEAN PLATELET VOLUME 11.3 fL (7.4-10.4); MONOCYTES 6.7 % (2-11); NEUTROPHILS 62.8 % (40-80); PLATELET COUNT 227 10x3/uL (130-400); RDW 13.4 % (11.5-14.5)
[2018-09-30 11:18] LABS: WBC 6.9 10x3/uL (4.8-10.8)
[2018-09-30 11:38] LABS: INR 1.02 (0.85-1.17)
[2018-09-30 11:39] LABS: APTT 30.5 SECONDS (22.8-39.4)
[2018-09-30 11:47] VITALS: BP 144/80
[2018-09-30 11:49] LABS: ALBUMIN 3.3 g/dL (3.4-5.0); ALKALINE PHOSPHATASE 61 U/L (46-116); ALT (SGPT) 55 U/L (10-68); BILIRUBIN - TOTAL 0.26 mg/dL (0.2-1.3); CALC OSMOLALITY 286 mosm/kg (275-300); CALCIUM 8.5 mg/dL (8.5-10.1); CARBON DIOXIDE 32.7 mmol/L (21.0-32.0); CHLORIDE - SERUM 98 mmol/L (98-107); CHOLESTEROL, TOTAL 213 mg/dL (0-200); CREATININE - SERUM 0.8 mg/dL (0.6-1.3); GLUCOSE 340 mg/dL (74-106); PHOSPHOROUS 3.7 mg/dL (2.5-4.9); POTASSIUM - SERUM 3.4 mmol/L (3.5-5.1); PROTEIN - SERUM 6.8 g/dL (6.4-8.2); SODIUM 137 mmol/L (136-145); T4 THYROXIN - FREE 1.08 ng/dL (0.76-1.46); THYROID STIMULATING HORMONE 1.56 uIU/mL (0.36-3.74); UREA NITROGEN 12 mg/dL (7-18); URIC ACID 2.7 mg/dL (2.6-7.2); eGFR NON AFRICAN AMERICAN 77 mL/min (90-120)
[2018-09-30 12:34] VITALS: BMI 30.4
[2018-09-30 16:04] VITALS: BP 149/96
[2018-09-30 21:30] VITALS: BP 142/76
[2018-10-01] VITALS (48 sets, daily range): BP systolic 96–136; BP diastolic 55–76; Ht 157.5 cm; Wt 76.0 kg
[2018-10-01 05:33] LABS: APPEARANCE CLEAR (CLEAR); BILIRUBIN NEGATIVE (NEGATIVE); COLOR YELLOW (YELLOW); GLUCOSE 250 mg/dL (NEGATIVE); KETONE NEGATIVE (NEGATIVE); NITRITE NEGATIVE (NEGATIVE); PROTEIN TRACE mg/dL (NEGATIVE); UROBILINOGEN NORMAL (NORMAL)
[2018-10-01 05:34] LABS: BACTERIA NONE SEEN /hpf (NONE SEEN); EPITHELIAL CELLS 0-5 /hpf (0-5); RED CELLS - URINE NONE SEEN /hpf (0-5); WHITE CELLS - URINE 0-5 /hpf (0-5)
[2018-10-02] VITALS (28 sets, daily range): BP systolic 98–135; BP diastolic 34–72
[2018-10-02 07:10] LABS: HEMOGLOBIN 10.7 g/dL (12-16); MCH 29.5 pg (26.0-34.0); MCHC 34.5 g/dL (31.0-37.0); MCV 85.4 fL (80.0-100.0); MEAN PLATELET VOLUME 11.7 fL (7.4-10.4); RBC 3.63 10x6/uL (4.00-5.40); RDW 13.9 % (11.5-14.5)
[2018-10-02 07:25] LABS: WBC 13.9 10x3/uL (4.8-10.8)
[2018-10-02 08:01] LABS: ALBUMIN 2.6 g/dL (3.4-5.0); ALKALINE PHOSPHATASE 36 U/L (46-116); CALCIUM 7.5 mg/dL (8.5-10.1); CARBON DIOXIDE 31.5 mmol/L (21.0-32.0); CHLORIDE - SERUM 106 mmol/L (98-107); CREATININE - SERUM 0.8 mg/dL (0.6-1.3); PROTEIN - SERUM 5.1 g/dL (6.4-8.2); SODIUM 142 mmol/L (136-145); eGFR NON AFRICAN AMERICAN 77 mL/min (90-120)
[2018-10-02 08:02] LABS: CALC OSMOLALITY 284 mosm/kg (275-300); GLUCOSE 171 mg/dL (74-106); POTASSIUM - SERUM 3.8 mmol/L (3.5-5.1); UREA NITROGEN 8 mg/dL (7-18)
[2018-10-02 08:03] LABS: ALT (SGPT) 36 U/L (10-68)
[2018-10-03] VITALS (24 sets, daily range): BP systolic 100–127; BP diastolic 51–70
[2018-10-03 06:21] LABS: HEMATOCRIT 27.2 % (36.0-48.0); HEMOGLOBIN 9.1 g/dL (12-16); MCHC 33.5 g/dL (31.0-37.0); MCV 86.6 fL (80.0-100.0); MEAN PLATELET VOLUME 11.1 fL (7.4-10.4); RBC 3.14 10x6/uL (4.00-5.40); RDW 13.9 % (11.5-14.5); WBC 10.7 10x3/uL (4.8-10.8)
[2018-10-03 06:40] LABS: ALBUMIN 2.2 g/dL (3.4-5.0); ALKALINE PHOSPHATASE 40 U/L (46-116); ALT (SGPT) 34 U/L (10-68); BILIRUBIN - TOTAL 0.28 mg/dL (0.2-1.3); CALC OSMOLALITY 277 mosm/kg (275-300); CALCIUM 7.5 mg/dL (8.5-10.1); CARBON DIOXIDE 30.3 mmol/L (21.0-32.0); CHLORIDE - SERUM 104 mmol/L (98-107); CREATININE - SERUM 0.7 mg/dL (0.6-1.3); GLUCOSE 173 mg/dL (74-106); PROTEIN - SERUM 5.1 g/dL (6.4-8.2); SODIUM 138 mmol/L (136-145); UREA NITROGEN 8 mg/dL (7-18); eGFR NON AFRICAN AMERICAN 90 mL/min (90-120)
[2018-10-03 06:41] LABS: POTASSIUM - SERUM 4.4 mmol/L (3.5-5.1)
[2018-10-04] VITALS (23 sets, daily range): BP systolic 88–124; BP diastolic 45–66
[2018-10-04 06:13] LABS: HEMATOCRIT 29.7 % (36.0-48.0); HEMOGLOBIN 9.9 g/dL (12-16); MCH 28.9 pg (26.0-34.0); MCHC 33.3 g/dL (31.0-37.0); MCV 86.8 fL (80.0-100.0); MEAN PLATELET VOLUME 11.2 fL (7.4-10.4); RBC 3.42 10x6/uL (4.00-5.40); RDW 13.5 % (11.5-14.5); WBC 9.3 10x3/uL (4.8-10.8)
[2018-10-04 06:47] LABS: ALBUMIN 2.1 g/dL (3.4-5.0); ALKALINE PHOSPHATASE 56 U/L (46-116); ALT (SGPT) 30 U/L (10-68); BILIRUBIN - TOTAL 0.25 mg/dL (0.2-1.3); CALC OSMOLALITY 273 mosm/kg (275-300); CALCIUM 7.7 mg/dL (8.5-10.1); CARBON DIOXIDE 30.7 mmol/L (21.0-32.0); CHLORIDE - SERUM 101 mmol/L (98-107); CREATININE - SERUM 0.8 mg/dL (0.6-1.3); GLUCOSE 133 mg/dL (74-106); PROTEIN - SERUM 5.6 g/dL (6.4-8.2); SODIUM 136 mmol/L (136-145); eGFR NON AFRICAN AMERICAN 77 mL/min (90-120)
[2018-10-04 06:48] LABS: UREA NITROGEN 12 mg/dL (7-18)
[2018-10-05] VITALS (24 sets, daily range): BP systolic 96–133; BP diastolic 50–73
[2018-10-05 06:19] LABS: BASOPHILS 0.1 % (0-2); EOSINOPHILS 2.5 % (0-7); HEMATOCRIT 25.1 % (36.0-48.0); HEMOGLOBIN 8.4 g/dL (12-16); IMMATURE GRANULOCYTES 0.1 % (0-5); LYMPHOCYTES 23.9 % (15-50); MCH 28.9 pg (26.0-34.0); MCHC 33.5 g/dL (31.0-37.0); MCV 86.3 fL (80.0-100.0); MEAN PLATELET VOLUME 10.8 fL (7.4-10.4); MONOCYTES 9.1 % (2-11); NEUTROPHILS 64.3 % (40-80); RBC 2.91 10x6/uL (4.00-5.40); RDW 13.4 % (11.5-14.5)
[2018-10-05 06:21] LABS: PLATELET COUNT 205 10x3/uL (130-400); WBC 6.8 10x3/uL (4.8-10.8)
[2018-10-05 06:42] LABS: ALKALINE PHOSPHATASE 64 U/L (46-116); ALT (SGPT) 33 U/L (10-68); BILIRUBIN - TOTAL 0.23 mg/dL (0.2-1.3); CALC OSMOLALITY 279 mosm/kg (275-300); CALCIUM 7.8 mg/dL (8.5-10.1); CARBON DIOXIDE 31.9 mmol/L (21.0-32.0); CHLORIDE - SERUM 101 mmol/L (98-107); CREATININE - SERUM 0.8 mg/dL (0.6-1.3); GLUCOSE 162 mg/dL (74-106); MAGNESIUM - SERUM 1.6 mg/dL (1.8-2.4); PHOSPHOROUS 2.4 mg/dL (2.5-4.9); PRO BNP 1195 pg/mL (0-125); PROTEIN - SERUM 5.5 g/dL (6.4-8.2); SODIUM 138 mmol/L (136-145); THYROID STIMULATING HORMONE 1.83 uIU/mL (0.36-3.74); UREA NITROGEN 13 mg/dL (7-18); eGFR NON AFRICAN AMERICAN 77 mL/min (90-120)
[2018-10-05 06:44] LABS: POTASSIUM - SERUM 3.5 mmol/L (3.5-5.1)
[2018-10-06] VITALS (24 sets, daily range): BP systolic 105–144; BP diastolic 47–80
[2018-10-06 06:07] LABS: HEMATOCRIT 25.4 % (36.0-48.0); HEMOGLOBIN 8.4 g/dL (12-16); MCH 28.6 pg (26.0-34.0); MCHC 33.1 g/dL (31.0-37.0); MCV 86.4 fL (80.0-100.0); MEAN PLATELET VOLUME 10.8 fL (7.4-10.4); RBC 2.94 10x6/uL (4.00-5.40); RDW 13.5 % (11.5-14.5); WBC 6.9 10x3/uL (4.8-10.8)
[2018-10-06 06:46] LABS: ALBUMIN 2.2 g/dL (3.4-5.0); ALKALINE PHOSPHATASE 65 U/L (46-116); ALT (SGPT) 32 U/L (10-68); BILIRUBIN - TOTAL 0.16 mg/dL (0.2-1.3); CALC OSMOLALITY 281 mosm/kg (275-300); CALCIUM 8.8 mg/dL (8.5-10.1); CHLORIDE - SERUM 106 mmol/L (98-107); CREATININE - SERUM 0.7 mg/dL (0.6-1.3); POTASSIUM - SERUM 3.9 mmol/L (3.5-5.1); PROTEIN - SERUM 6.1 g/dL (6.4-8.2); SODIUM 143 mmol/L (136-145); UREA NITROGEN 11 mg/dL (7-18); eGFR NON AFRICAN AMERICAN 90 mL/min (90-120)
[2018-10-06 06:47] LABS: GLUCOSE 71 mg/dL (74-106)
[2018-10-07] VITALS (24 sets, daily range): BP systolic 106–147; BP diastolic 57–82
[2018-10-08] VITALS (24 sets, daily range): BP systolic 100–141; BP diastolic 46–73
[2018-10-09] VITALS (10 sets, daily range): BP systolic 105–150; BP diastolic 45–77
[2018-10-09 06:38] LABS: BASOPHILS 0.3 % (0-2); EOSINOPHILS 1.9 % (0-7); HEMATOCRIT 31.4 % (36.0-48.0); HEMOGLOBIN 10.3 g/dL (12-16); IMMATURE GRANULOCYTES 0.8 % (0-5); LYMPHOCYTES 20.7 % (15-50); MCH 28.9 pg (26.0-34.0); MCHC 32.8 g/dL (31.0-37.0); MEAN PLATELET VOLUME 10.7 fL (7.4-10.4); MONOCYTES 6.4 % (2-11); NEUTROPHILS 69.9 % (40-80); RBC 3.57 10x6/uL (4.00-5.40); RDW 14.2 % (11.5-14.5); WBC 9.8 10x3/uL (4.8-10.8)
[2018-10-09 06:50] LABS: ANION GAP 13.6 mmol/L (8-16); CALCIUM 8.5 mg/dL (8.5-10.1); CARBON DIOXIDE 28.2 mmol/L (21.0-32.0); CREATININE - SERUM 1.1 mg/dL (0.6-1.3); PLATELET COUNT 386 10x3/uL (130-400); POTASSIUM - SERUM 3.8 mmol/L (3.5-5.1)
[2018-10-09] MEDS ORDERED: PERCOCET 5-3251 TAB PO (08:48)
[2018-10-09] MEDS ORDERED: TRICOR145 MG PO (11:03)
[2018-10-09] MEDS ORDERED: AMIODARONE HCL200 MG PO ×2 (11:03→12:25)
[2018-10-09] MEDS ORDERED: ASPIRIN EC81 M1 PO (11:04)
[2018-10-09] MEDS ORDERED: LOPRESSOR25 MG PO (11:04)
[2018-10-09] MEDS ORDERED: COLACE100 MG PO (11:05)
[2018-10-09] MEDS ORDERED: K-DUR20 MEQ PO (11:05)
== END 2018-10-09 14:18 | disposition home or self-care (01) | DRG 234 ==
LOC: D.CATH 12:24 → D.M2 18:35 → D.CATH 18:36 → D.M2 18:37 → D.CVICU 18:37
PROVIDERS: Family Medicine; Internal Medicine Cardiovascular Disease; Thoracic Surgery (Cardiothoracic Vascular Surgery)
PROC: B2151ZZ Fluoroscopy of Left Heart using Low Osmolar Contrast (ICD-10-PCS; 2018-09-29)
PROC: B2111ZZ Fluoroscopy of Multiple Coronary Arteries using Low Osmolar Contrast (ICD-10-PCS; 2018-09-29)
PROC: 4A023N7 Measurement of Cardiac Sampling and Pressure, Left Heart, Percutaneous Approach (ICD-10-PCS; principal; 2018-09-29 14:30)
PROC: 02100Z9 Bypass Coronary Artery, One Artery from Left Internal Mammary, Open Approach (ICD-10-PCS; 2018-10-01)
PROC: 021109W Bypass Coronary Artery, Two Arteries from Aorta with Autologous Venous Tissue, Open Approach (ICD-10-PCS; 2018-10-01)
PROC: 06BP0ZZ Excision of Right Saphenous Vein, Open Approach (ICD-10-PCS; 2018-10-01)
PROC: 5A1221Z Performance of Cardiac Output, Continuous (ICD-10-PCS; 2018-10-01)
DX: I25.110 Atherosclerotic heart disease of native coronary artery with unstable angina pectoris (principal); E83.42 Hypomagnesemia; E83.39 Other disorders of phosphorus metabolism; K21.9 Gastro-esophageal reflux disease without esophagitis; E78.5 Hyperlipidemia, unspecified; R00.0 Tachycardia, unspecified; J45.909 Unspecified asthma, uncomplicated; D64.9 Anemia, unspecified; I10 Essential (primary) hypertension; E11.40 Type 2 diabetes mellitus with diabetic neuropathy, unspecified; E11.65 Type 2 diabetes mellitus with hyperglycemia

== ENCOUNTER → 2018-10-29 09:59 | Outpatient (CLI) | payer MEDICAID ==
[2018-10-01 14:13] VITALS: BMI 31.5
[~2018-10-29 09:59] MED LIST changes: +AMIODARONE HCL200 MG PO; +ASPIRIN EC81 M1 PO; +COLACE100 MG PO; +COZAAR50 MG PO; +GALZIN50 MG PO; +GINGER500 MG PO; +GLUCOSAMINE HC500 MG PO; +K-DUR20 MEQ PO; +L-LYSINE500 M1 PO; +LOPRESSOR25 MG PO; +MELATONIN 3 MG1 TAB PO; +METHOTREXATE2.5 MG PO; +NEURONTIN 300300 MG PO; +NOVOLIN 70/30 110 ML SC; +PERCOCET 5-3251 TAB PO; +ROBAXIN500 MG PO; +TESSALON PERLE100 MG PO; +TRICOR145 MG PO
[2018-10-29 10:37] LABS: HEMATOCRIT 38.9 % (36.0-48.0); HEMOGLOBIN 12.9 g/dL (12-16); MCH 28.1 pg (26.0-34.0); MCHC 33.2 g/dL (31.0-37.0); MCV 84.7 fL (80.0-100.0); RBC 4.59 10x6/uL (4.00-5.40); RDW 13.7 % (11.5-14.5)
[2018-10-29 10:49] LABS: ANION GAP 11.2 mmol/L (8-16); BILIRUBIN - TOTAL 0.38 mg/dL (0.2-1.3); CALCIUM 9.1 mg/dL (8.5-10.1); CREATININE - SERUM 1.2 mg/dL (0.6-1.3); POTASSIUM - SERUM 4.2 mmol/L (3.5-5.1); PROTEIN - SERUM 7.9 g/dL (6.4-8.2)
== END | disposition home or self-care (01) ==
LOC: D.LAB 09:59
PROVIDERS: Orthopaedic Surgery
DX: D64.9 Anemia, unspecified (principal); J91.8 Pleural effusion in other conditions classified elsewhere

== ENCOUNTER → 2019-06-16 08:03 | Outpatient (CLI) | payer MEDICAID ==
[2018-10-01 14:13] VITALS: BMI 31.5
[2019-06-16 09:19] LABS: BASOPHILS 0.1 % (0-2); EOSINOPHILS 1.3 % (0-7); HEMATOCRIT 35.6 % (36.0-48.0); HEMOGLOBIN 12.3 g/dL (12-16); IMMATURE GRANULOCYTES 0.3 % (0-5); LYMPHOCYTES 11.8 % (15-50); MCH 28.3 pg (26.0-34.0); MCHC 34.6 g/dL (31.0-37.0); MCV 81.8 fL (80.0-100.0); MONOCYTES 1.5 % (2-11); PLATELET COUNT 158 10x3/uL (130-400); RBC 4.35 10x6/uL (4.00-5.40); RDW 14.5 % (11.5-14.5); WBC 8.8 10x3/uL (4.8-10.8)
[2019-06-16 10:03] LABS: ERYTHROCYTE SEDIMENTATION RATE 71 mm/hr (0-30)
== END | disposition home or self-care (01) ==
LOC: D.CT 08:03
PROVIDERS: ATTEND Internal Medicine Gastroenterology
DX: R10.9 Unspecified abdominal pain (principal)

== ENCOUNTER 2019-08-25 12:00 | Outpatient (CLI) | payer MEDICAID ==
[2018-10-01 14:13] VITALS: BMI 31.5
== END 2019-08-25 12:30 | disposition home or self-care (01) ==
LOC: D.MAMMO 12:00
PROVIDERS: ATTEND Family Medicine
DX: Z12.31 Encounter for screening mammogram for malignant neoplasm of breast (principal)

== ENCOUNTER → 2019-11-03 10:31 | Outpatient (CLI) | payer MEDICAID ==
[2018-10-01 14:13] VITALS: BMI 31.5
== END | disposition home or self-care (01) ==
LOC: D.HCCECHO 10:31
PROVIDERS: ATTEND Internal Medicine Cardiovascular Disease
DX: I10 Essential (primary) hypertension (principal)

== ENCOUNTER → 2020-06-13 08:37 | Outpatient (CLI) | payer MEDICAID ==
[2018-10-01 14:13] VITALS: BMI 31.5
[2020-06-13 09:35] LABS: ALBUMIN 3.7 g/dL (3.4-5.0); BILIRUBIN - DIRECT 0.13 mg/dL (0.00-0.30); BILIRUBIN - INDIRECT 0.37 mg/dL (0.00-1.00); BILIRUBIN - TOTAL 0.5 mg/dL (0.2-1.3); PROTEIN - SERUM 6.9 g/dL (6.4-8.2)
== END | disposition home or self-care (01) ==
LOC: D.US 08:30
PROVIDERS: ATTEND Internal Medicine Gastroenterology
DX: K76.0 Fatty (change of) liver, not elsewhere classified (principal)

== ENCOUNTER 2021-01-25 15:00 | Outpatient (CLI) | payer OTHER, MEDICAID ==
[2018-10-01 14:13] VITALS: BMI 31.5
== END 2021-01-25 15:30 | disposition home or self-care (01) ==
LOC: D.MAMMO 15:00
PROVIDERS: ATTEND Family Medicine
DX: Z12.31 Encounter for screening mammogram for malignant neoplasm of breast (principal)

== ENCOUNTER → 2021-03-13 08:28 | Outpatient (CLI) | payer MEDICARE, MEDICAID ==
[2018-10-01 14:13] VITALS: BMI 31.5
== END | disposition home or self-care (01) ==
LOC: D.LAB 08:28
PROVIDERS: ATTEND Internal Medicine Pulmonary Disease
DX: Z11.52 Encounter for screening for COVID-19 (principal)

== ENCOUNTER → 2021-03-17 07:55 | Outpatient (CLI) | payer MEDICARE, MEDICAID ==
[2018-10-01 14:13] VITALS: BMI 31.5
[2021-03-17 09:39] LABS: ALBUMIN 3.5 g/dL (3.4-5.0); ANION GAP 12.6 mmol/L (8-16); BILIRUBIN - TOTAL 0.24 mg/dL (0.2-1.3); CALCIUM 8.9 mg/dL (8.5-10.1); CARBON DIOXIDE 28.2 mmol/L (21.0-32.0); CREATININE - SERUM 1.1 mg/dL (0.6-1.3); POTASSIUM - SERUM 3.8 mmol/L (3.5-5.1); PROTEIN - SERUM 6.9 g/dL (6.4-8.2)
== END | disposition home or self-care (01) ==
LOC: D.RT 07:55
PROVIDERS: ATTEND Internal Medicine Pulmonary Disease
DX: R06.09 Other forms of dyspnea (principal)

== ENCOUNTER → 2021-04-14 09:12 | Outpatient (CLI) | payer MEDICARE, MEDICAID ==
[2018-10-01 14:13] VITALS: BMI 31.5
== END | disposition home or self-care (01) ==
LOC: D.HCCECHO 09:12
PROVIDERS: ATTEND Internal Medicine Cardiovascular Disease
DX: I25.10 Atherosclerotic heart disease of native coronary artery without angina pectoris (principal); R00.2 Palpitations; I10 Essential (primary) hypertension